=== PATIENT | female | born 1975 | race Caucasian/White ===

== ENCOUNTER 2025-02-25 11:17 | Outpatient (REF) | payer OTHER, SELFPAY ==
--- OUTSIDE RECORDS SUMMARY | 2025-02-25 13:33 | XMS_ITS | Clinical Summary ---
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 Role Phone Unavailable Primary Care Provider Unavailabl e Source Comments PLEASE NOTE, if this patient is a minor, it may be UNLAWFUL to discuss sensitive information that is contained in these records (such as FAMILY PLANNING, MENTAL HEALTH or SUBSTANCE ABUSE) with the minor patient's parent or other person without the patient's specific authorization.[facility] Medications No known medications Active Problems No known active problems Social History Tobacco Use Types Packs/Day Years Used Date Smoking Tobacco: Never Assessed Social Connections Answer Date Recorded Connectedness 0 07/18/2024 Financial Resource Strain Answer Date R ecorded Financial Resource Strain 0 2021 Stress Answer Date Recorded Stress 0 04/01/2022 Physical Activity Answer Date Recorded Physical Activity 0 04/01/2022 Food Insecurity Answer Date Recorded Food 0 08/01/2024 Transportation Needs Answer Date Record ed Transportation 0 04/01/2022 Housing Stability Answer Date Recorded Housing 0 04/01/2022 Safety and Environment Answer Date [place] r[place] Safety 0 04/01/2022 Utilities Answer Date Recorded Utilities 0 04/01/2022 Employment Answer Date Recorded Stress 0 07/18/2024 Comments Unknown Sex and Gender Information Value Date Recorded Sex Assigned at Not on file Legal Sex Female 12:51 PM PDT Gender Identity Not on file Sexual Orientation Not on file Last Filed Vital Signs Vital Sign Reading Time Taken Comments Blood Pressure 143/96 06/02/2022 3:48 PM EDT Pulse 82 06/02/2022 3:48 PM EDT Temperature - - Respiratory Rate - - Oxygen Saturation - - Inhaled Oxygen Concentration - - Weight - - Height - - Body Mass Index - - Plan of Treatment Health Maintenance Due Date Last Done Comments Anxiety Screening 1975 Dental FMX/Pano 1975 Dental Perio Charting 1975 Diabetes Screening 1975 HPV Screening 1975 Hepatitis C Screening 1975 Lipid Screening 1975 Pap + HPV 1975 Tobacco Screening 1975 HIV Screening 1990 Relationship Safety Screening/Counseling 1990 Imm-Hepatitis B (1 of 3 - 19 + 3-dose series) 1994 Cervical Cancer Screening 1996 Pap Smear 1996 Breast Cancer Screening (Mammogram) 2015 Imm-DTaP/Tdap/Td (1 - Tdap) 04/28/2018 04/27/2018 CT Colonography 2020 Colonoscopy 2020 Colorectal Cancer Screening 2020 FIT/gFOBT 2020 Fecal DNA 2020 Flexible Sigmoidoscopy 2020 Hypertension Screening (#1) 06/02/2023 Dental BW 06/04/2023 06/02/2022 Dental Examination 06/04/2023 06/02/2022 Dental Prophy 06/04/2023 06/02/2022 [id number] ( season) 2024 021 Imm-Influenza (#1) 2024 09/02/2014, 0 01/22/2014, 08/16/2011 Alcohol and Drug Screen 11/06/2024 Depression Annual Screen 11/06/2024 Cervical Ablation/Cold-Knife Conization Discontinued Cervical Cryotherapy Discontinued Colposcopy Discontinued Endometrial Biopsy Discontinued Excision/Leep Discontinued HPV Genotyping Discontinued Vaginal Pap Discontinued Vulvoscopy Discontinued Procedures Procedure Name Priority Date/Time Associated Diagnosis Comments BITEWINGS - FOUR RADIOGRAPHIC IMAGES Routine 06/02/2022 3:00 PM EDT Gingivitis, chronic, plaque induced Full PROPHYLAXIS - ADULT Routine 022 3:00 PM EDT Gingivitis, chronic, plaque induced PERIODIC ORAL EVALUATION ESTABLISHED PATIENT Routine 06/02/2022 3:00 PM EDT Gingivitis, chronic, plaque induced from Last 3 Months or Most Recently Relevant to Health Maintenance Insurance [facility]
--- OUTSIDE RECORDS SUMMARY | 2025-02-25 13:33 | XMS_ITS | Encounter Summary ---
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 Role Phone Unavailable Primary Care Provider Unavailabl e Encounter Details Date Type Department Care Team (Late st Contact Info) Description 04/01/2022 Dental Interim Note [facility] [address] [place] [id number] HernandezWhitney jo Y [address] [place], [place] [id number] Social History Tobacco Use Types Packs/Day Years Used Date Smoking Tobacco: Never Assessed Social Connections Answer Date Recorded Social Connections and Isolation 0 04/01/2022 Financial Resource Strain Answer Date R ecorded Financial Resource Strain 0 2021 Stress Answer Date Recorded Stress 0 04/01/2022 Physical Activity Answer Date Recorded Physical Activity 0 04/01/2022 Food Insecurity Answer Date Recorded Food 0 04/01/2022 Transportation Needs Answer Date Record ed Transportation 0 04/01/2022 Housing Stability Answer Date Recorded Housing 0 04/01/2022 Safety and Environment Answer Date [place] r[place] Safety 0 04/01/2022 Utilities Answer Date Recorded Utilities 0 04/01/2022 Employment Answer Date Recorded Employment 0 04/01/2022 Comments Unknown Sex and Gender Information Value Date Recorded Sex Assigned at Not on file Legal Sex Female 12:51 PM PDT Gender Identity Not on file Sexual Orientation Not on file documented as of this encounter Plan of Treatment Not on file documented as of this encounter Visit Diagnoses Not on filedocumented in this encounter
--- OUTSIDE RECORDS SUMMARY | 2025-02-25 13:33 | XMS_ITS | Data Portability ---
Author Organization [place] - [facility], [facility] Address [address] [place] [address] Care Team Providers Care Wellness Assistant Name Role Phone KEILA HUANG Referring Provider [phone] THIEN QUINONES Primary Care Provider Assessment Encounter Date Assessment Date Assessment LastModified by Organization Details LastModified Time 01/28/2025 01/28/2025 Assessment: R shld ROM near full A flexion. Good response to low level stretching and strengthening, and STM to shoulder and c-spine. Less upper trap and cervical spasm. Decreased pain end of RX. Plan: Continue PT @ 2x/wk to decrease pain, increase ROM, optimize mechanics, and improve participation in functional activities. Not available 01/28/2025 12:37:39 01/30/2025 01/30/2025 Assessment: R shld ROM near full A flexion. Good response to low level stretching and strengthening, and STM to shoulder and c-spine. Less upper trap and cervical spasm. Decreased pain end of RX. Plan: Continue PT @ 2x/wk to decrease pain, increase ROM, optimize mechanics, and improve participation in functional activities. Not available 01/30/2025 13:48:39 02/03/2025 02/03/2025 Assessment: R shld ROM near full A flexion. Good response to low level stretching and strengthening, and STM to shoulder and c-spine. Less upper trap and cervical spasm. Decreased pain end of RX. Plan: Continue PT @ 2x/wk to decrease pain, increase ROM, optimize mechanics, and improve participation in functional activities. Not available 02/02/2025 08:45:56 02/05/2025 02/05/2025 Assessment: R shld ROM near full A flexion. Good response to low level stretching and strengthening, and STM to shoulder and c-spine. Less upper trap and cervical spasm. Decreased pain end of RX. Plan: Continue PT @ 2x/wk to decrease pain, increase ROM, optimize mechanics, and improve participation in functional activities. Not available 02/05/2025 07:23:51 Plan of Treatment Reminders Order Date Submit Date Provider Last Modified By Organization Details Last Modified Time Details Appointments POST OP 15 2024 01:00P M Xiomara Gann MD Not available Not available Not available PT INITIAL EVAL 2024 01:30P M Adelso Florek, PT Not available Not available Not available PT FOLLOW-UP 2024 03:30P M Saman Scafuri, RADIO TIME SALESPERSON Not available Not available Not available PT FOLLOW-UP 2024 02:00P M Adelso Florek, PT Not available Not available Not available PT FOLLOW-UP 2024 10:30A M Adelso Florek, PT Not available Not available Not available PT FOLLOW-UP 2024 02:30P M Adelso Florek, PT Not available Not available Not available PT FOLLOW-UP 2024 11:00A M Saman Scafuri, RADIO TIME SALESPERSON Not available Not available Not available PT FOLLOW-UP 2024 03:30P M Adelso Florek, PT Not available Not available Not available PT FOLLOW-UP 2024 02:00P M Saman Scafuri, RADIO TIME SALESPERSON Not available Not available Not available PT FOLLOW-UP 2024 01:30P M Adelso Florek, PT Not available Not available Not available PT FOLLOW-UP 2024 01:30P M Saman Scafuri, RADIO TIME SALESPERSON Not available Not available Not available PT FOLLOW-UP 2024 10:30A M Adelso Florek, PT Not available Not available Not available PT FOLLOW-UP 2024 10:30A M Adelso Florek, PT Not available Not available Not available PT FOLLOW-UP 2024 01:30P M Saman Scafuri, RADIO TIME SALESPERSON Not available Not available Not available PT FOLLOW-UP 2024 01:30P M Saman Scafuri, RADIO TIME SALESPERSON Not available Not available Not available PT FOLLOW-UP 2024 01:30P M Adelso Florek, PT Not available Not available Not available PT FOLLOW-UP 2024 01:30P M Adelso Florek, PT Not available Not available Not available PT FOLLOW-UP 2024 01:00P M Adelso Florek, PT Not available Not available Not available PT FOLLOW-UP 2024 01:00P M Adelso Florek, PT Not available Not available Not available PT FOLLOW-UP 2024 11:00A M Saman Scafuri, RADIO TIME SALESPERSON Not available Not available Not available PT FOLLOW-UP 2024 11:00A M Saman Scafuri, RADIO TIME SALESPERSON Not available Not available Not available PT FOLLOW-UP 2024 10:30A M Adelso Florek, PT Not available Not available Not available PT FOLLOW-UP 2024 10:30A M Adelso Florek, PT Not available Not available Not available PT FOLLOW-UP 2024 11:30A M Saman Scafuri, RADIO TIME SALESPERSON Not available Not available Not available PT FOLLOW-UP 2024 11:30A M Saman Scafuri, RADIO TIME SALESPERSON Not available Not available Not available PT FOLLOW-UP 2024 11:00A M Adelso Florek, PT Not available Not available Not available PT FOLLOW-UP 2024 11:00A M Adelso Florek, PT Not available Not available Not available PT FOLLOW-UP 2024 11:00A M Saman Scafuri, RADIO TIME SALESPERSON Not available Not available Not available PT FOLLOW-UP 2024 11:00A M Saman Scafuri, RADIO TIME SALESPERSON Not available Not available Not available PT FOLLOW-UP 2024 11:00A M Adelso Florek, PT Not available Not available Not available PT FOLLOW-UP 2024 11:00A M Adelso Florek, PT Not available Not available Not available Lab CBC w/ auto diff 2024 025 MADELYN [facility], [address], [place], [address], 02/12/2025 00:05:22 glucose, QN [mass/vol ume], body fluid 2024 025 [email or web address] [facility], [address], [place], [address], 02/07/2025 12:26:35 glucose, QN [mass/vol ume], serum or plasma 2024 025 MADELYN [facility], [address], [place], [address], 02/12/2025 00:05:23 Referral None recorded. Procedures None recorded. Surgeries shoulder arthrosco py with acromiopl asty, distal clavicle resection , & rotator cuff repair (SURG) 2024 025 [email or web address] [facility], [address], [place], [address], 02/07/2025 12:26:35 Imaging None recorded. Medication Orders Colace 100 mg capsule 2024 025 [facility] #[id number], [address] [place] [address], [phone], 02/07/2025 12:50:41 acetamino phen 500 mg tablet 2024 025 [facility] #[id number], [facility] [place], [place], [phone], 02/07/2025 12:50:40 naproxen 500 mg tablet 2024 025 [facility], [address] [place], [place], [phone], 02/07/2025 12:50:43 aspirin 325 mg tablet 2024 025 [id number], [address] [place], [place], [phone], 02/07/2025 12:50:41 hydromorp joel 2 mg tablet 2024 025 [facility][id number], [address] [place], [place], [phone], 02/07/2025 12:50:42 Patient TargetsNo targets recorded. Patient InstructionsNo instructions recorded. Reason for Referral None Reported. Results Created Date Observation Date Name Description Value Unit Range Abnormal Flag Note LastModifiedBy Organization Detail LastModifiedTime 02/08/2002/07/2025 CBC WITH DIFFE RENTI AL/PL ATELE T WBC 16.0 x10e3 /uL 3.4-10 .8 above high normal Not Available [facility] ([facility]) [address] [place], [address], 02/12/2025 00:05:22 02/08/2002/07/2025 CBC WITH DIFFE RENTI AL/PL ATELE T RBC 4.17 x10e6 /uL 3.77-5 .28 normal Not Available [facility] ([facility]) [address] [place], [address], 02/12/2025 00:05:22 02/08/20 25 02/07/2025 CBC WITH DIFFE RENTI AL/PL ATELE T hemoglobin 11.2 g/dL 11.1-1 5.9 normal Not Available [facility] ([facility]) [address] [place], [address], 02/12/2025 00:05:22 02/08/2002/07/2025 CBC WITH DIFFE RENTI AL/PL ATELE T hematocrit 33.9 % 34.0-4 6.6 below low normal Not Available [facility] ([facility]) [address] [place], [address], 02/12/2025 00:05:22 02/08/20 25 02/07/2025 CBC WITH DIFFE RENTI AL/PL ATELE T MCV 81 fL 79-97 normal Not Available [facility] ([facility]) [address] [facility], [place], [address], 02/12/2025 00:05:22 02/08/20 25 02/07/2025 CBC WITH DIFFE RENTI AL/PL ATELE T MCH 26.9 pg 26.6-3 3.0 normal Not Available [facility] ([facility]) [address] [facility], [place], [address], 02/12/2025 00:05:22 02/08/20 25 02/07/2025 CBC WITH DIFFE RENTI AL/PL ATELE T MCHC 33.0 g/dL 31.5-3 5.7 normal Not Available [facility] ([facility]) [address] [facility], [place], [address], 02/12/2025 00:05:22 02/08/20 25 02/07/2025 CBC WITH DIFFE RENTI AL/PL ATELE T RDW 19.3 % 11.7-1 5.4 above high normal Not Available [facility] ([facility]) [address] [place], [address], 02/12/2025 00:05:22 02/08/20 25 02/07/2025 CBC WITH DIFFE RENTI AL/PL ATELE T platelets 427 x10e3 /uL 150-45 0 normal Not Available [facility] ([facility]) [address] [facility], [place], [address], 02/12/2025 00:05:22 02/08/2002/07/2025 CBC WITH DIFFE RENTI AL/PL ATELE T neutrophils 75 % not estab. normal Not Available [facility] ([facility]) [address] [facility], [place], [address], 02/12/2025 00:05:22 02/08/20 25 02/07/2025 CBC WITH DIFFE RENTI AL/PL ATELE T lymphs 17 % not estab. normal Not Available [facility] ([facility]) [address] [place], [address], 02/12/2025 00:05:22 02/08/20 25 02/07/2025 CBC WITH DIFFE RENTI AL/PL ATELE T monocytes 6 % not estab. normal Not Available [facility] ([facility]) [address] [place], [address], 02/12/2025 00:05:22 02/08/20 25 02/07/2025 CBC WITH DIFFE RENTI AL/PL ATELE T eos 2 % not estab. normal Not Available [facility] ([facility]) [address] [place], [address], 02/12/2025 00:05:22 02/08/20 25 02/07/2025 CBC WITH DIFFE RENTI AL/PL ATELE T basos 0 % not estab. normal Not Available [facility] ([facility]) [address] [place], [address], 02/12/2025 00:05:22 02/08/20 25 02/07/2025 CBC WITH DIFFE RENTI AL/PL ATELE T immature cells COMPLAINT SPECIALIST Not Available [facility] ([facility]) [address] [place], [address], 02/12/2025 00:05:22 02/08/20 25 02/07/2025 CBC WITH DIFFE RENTI AL/PL ATELE T neutrophils (absolute) 12.1 x10e3 /uL 1.4-7. 0 above high normal Not Available [facility] ([facility]) [address] [place], [address], 02/12/2025 00:05:22 02/08/20 25 02/07/2025 CBC WITH DIFFE RENTI AL/PL ATELE T lymphs (absolute) 2.6 x10e3 /uL 0.7-3. 1 normal Not Available [facility] ([facility]) [address] [place], [address], 02/12/2025 00:05:22 02/08/20 25 02/07/2025 CBC WITH DIFFE RENTI AL/PL ATELE T monocytes(ab solute) 1.0 x10e3 /uL 0.1-0. 9 above high normal Not Available [facility] ([facility]) [address] [facility], [place], [address], 02/12/2025 00:05:22 02/08/20 25 02/07/2025 CBC WITH DIFFE RENTI AL/PL ATELE T eos (absolute) 0.3 x10e3 /uL 0.0-0. 4 normal Not Available [facility] ([facility]) [address] [facility], [place], [address], 02/12/2025 00:05:22 02/08/20 25 02/07/2025 CBC WITH DIFFE RENTI AL/PL ATELE T baso (absolute) 0.1 x10e3 /uL 0.0-0. 2 normal Not Available [facility] ([facility]) [address] [place], [address], 02/12/2025 00:05:22 02/08/20 25 02/07/2025 CBC WITH DIFFE RENTI AL/PL ATELE T immature granulocytes 0 % not estab. Not Available [facility] ([facility]) [address] [facility], [place], [address], 02/12/2025 00:05:22 02/08/20 25 02/07/2025 CBC WITH DIFFE RENTI AL/PL ATELE T immature grans (abs) 0.0 x10e3 /uL 0.0-0. 1 Not Available [facility] ([facility]) [address] [facility], [place], [address], 02/12/2025 00:05:22 02/08/20 25 02/07/2025 CBC WITH DIFFE RENTI AL/PL ATELE T NRBC COMPLAINT SPECIALIST Not Available [facility] ([facility]) [address] [facility], [place], [address], 02/12/2025 00:05:22 02/08/2002/07/2025 CBC WITH DIFFE SHARA AL/PL ATEVALERY T hematology comments: COMPLAINT SPECIALIST Not Available [facility] ([facility]) [address] [facility], [place], [address], 02/12/2025 00:05:22 02/08/2002/07/2025 GLUCO SE glucose 92 mg/dL 70-99 normal Not Available [facility] ([facility]) [address] [facility], [place], [address], 02/12/2025 00:05:23 01/16/20 25 01/14/2025 MRI, ricardo rodrigo, w/o contr ast [facility] Access ion Number : [id number] Patien t Name: Lucie Solisdevon joyner [facility] Record Number : [id number] Date of : 1974 Date of Exam: 2024 Referr ing Physic skyler: Radha Brambila [address] [facility], [place] [address] Exam: MR Should er (C-) CPT 25760 - Left Room Descri ption: [facility] 3T Clinic al Histor y: Pain in the left should er with limite d range of motion , questi on rotato r cuff tear. The patien t report s mild to modera te daily left should er pain with loss of range of motion and histor y of rotato r cuff repair in June 2020. Techni que: MRI of the left should er was perfor med withou t intrav enous contra st. Compar yoli: Left should er MR akbar solano dated 2017. Findin gs: Rotato r cuff: There is a surgic al anchor in the manish superi or aspect of the lisandra l head. There is interm ediate T2 signal throug hout the supras pinatu s with adjace nt postop erativ e change . There is insert ional tendin opathy of infras pinatu s. The subsca pulari s tendon distal ly is diffus dante interm ediate in T2 signal though appear s to extend the anchor site withou t eviden ce of recurr ent full-t hickne ss tear. Articu lar surfac e partia l tear is seen in the mid to superi or portio n of the subsca pulari s measur ing proxim ately 7 x 13 mm. The teres minor tendon is intact . Mild fatty infilt ration is seen superi padma in the subsca pulari s. Glenoi d labrum and biceps tendon : Diminu tive appear ance of the superi or labrum with free margin trunca tion which may reflec t prior labral debrid ement versus degene rative tear. There is fluid tracki ng betwee n the bicipi nguyen groove and the short head of the biceps tendon . Status post biceps tenode sis with anchor sites seen in the proxim al lisandra l diaphy sis. AC joint: There is eviden ce of interv al distal clavic ular excisi on and subacr omial decomp ressio n. Subcho ndral cysts are seen in distal clavic le. Articu lar cartil age: The articu lar cartil age is of normal thickn ess. No focal defect s are seen. Bone: The bone and bone marrow are normal . Impres jeanna: 1. Status post rotato r cuff repair with postop erativ e change in the subsca pulari s with articu lar surfac e partia l tear in the midpor tion and no defini te recurr ent full-t hickne ss tear. 2. Supras pinatu s tendin opathy and tendin opathy of the infras pinatu s attach ment. 3. Status post biceps tenode sis, with nonspe cific fluid tracki ng betwee n the short head of biceps tendon in the bicipi nguyen groove . 4. Postop erativ e change at the acromi oclavi cular joint. Electr onical ly Signed By: Saray [email or web address] [facility] [address], [place], [address], 01/15/2025 15:43:02 Result Notes None recorded. Problems Name Problem SNOMED Code Status Onset Date Resolution Date Notes Provider Name and Address Organization Details Recorded Time Pain of left shoulder joint 699534060112 21150 Active 2024 Radha Cartagena PA-C [address], [place], [address] , [facility] 5 08:37:56 Neck pain 61215518 Active 2024 Radha Cartagena PA-C [address], [place], [address] , [facility] 5 20:28:34 Full thickness rotator cuff tear 214977384 Active 2019 Problem Code: M75.122; Problem Code Type: ICD-10; Status: 'A'; Not Available [facility] 4 11:58:04 Notes:Some problems listed i n Document: #[id number] could not be added to this patient's chart. Please review this document and add these problems to the patient's chart manually as needed. Problem Notes None recorded. Procedures Surgical History Date Name Laterality Status Provider Name and Address Organization Details Recorded Time 4 05826 Therapeutic Exercise (1:1) completed Adelso Miller PT [address], [place], [address], [facility] 04/16/2024 19:43:42 4 79776: Manual therapy completed Adelso Miller PT [address], [place], [address], [facility] 04/16/2024 19:43:42 4 69401 Therapeutic Exercise (1:1) completed Adelso Miller PT [address], [place], [address], [facility] 04/14/2024 10:31:41 4 88127: Manual therapy completed Adelso Miller PT [address], [place], [address], [facility] 04/14/2024 10:31:41 4 15062 Therapeutic Exercise (1:1) completed Saman Scafuri, RADIO TIME SALESPERSON [address], [place], [address], [facility] 04/10/2024 14:46:14 4 94502: Manual therapy completed Saman Scafuri, RADIO TIME SALESPERSON [address], [place], [address], [facility] 04/10/2024 14:46:14 75776 Therapeutic Exercise (1:1) completed Saman Scafuri, RADIO TIME SALESPERSON [address], [place], [address], [facility] 04/03/2024 14:33:14 74246: Manual therapy completed Saman Scafuri, RADIO TIME SALESPERSON [address], [place], [address], [facility] 04/03/2024 14:33:14 86451 Therapeutic Exercise (1:1) completed Saman Scafuri, RADIO TIME SALESPERSON [address], [place], [address], [facility] 03/27/2024 15:02:46 47203: Manual therapy completed Saman Scafuri, RADIO TIME SALESPERSON [address], [place], [address], [facility] 03/27/2024 15:02:46 4 70239 Therapeutic Exercise (1:1) completed Saman Scafuri, RADIO TIME SALESPERSON [address], [place], [address], [facility] 03/25/2024 14:17:29 46693: Manual therapy completed Saman Scafuri, RADIO TIME SALESPERSON [address], [place], [address], [facility] 03/25/2024 14:17:29 05/16/202 4 44691 Therapeutic Exercise (1:1) completed Saman Scafuri, RADIO TIME SALESPERSON [address], [place], [address], [facility] 03/21/2024 11:45:26 4 83838: Manual therapy completed Saman Alisiafuri, RADIO TIME SALESPERSON [address], [place], [address], [facility] 03/21/2024 11:45:26 4 05752 Therapeutic Exercise (1:1) completed Saman Alisiafuri, RADIO TIME SALESPERSON [address], [place], [address], [facility] 03/19/2024 15:56:30 4 69197: Manual therapy completed Saman Broussardri, RADIO TIME SALESPERSON [address], [place], [address], [facility] 03/19/2024 15:56:30 4 88110 Therapeutic Exercise (1:1) completed Adelso Miller, PT [address], [place], [address], [facility] 03/13/2024 15:06:04 4 51841: Manual therapy completed Adelso Miller, PT [address], [place], [address], [facility] 03/13/2024 15:06:04 4 29326 Therapeutic Exercise (1:1) cancelled Adelsobharath Miller, PT [address], [place], [address], [facility] 03/12/2024 07:12:38 4 09412: Manual therapy cancelled Adelso Miller, PT [address], [place], [address], [facility] 03/12/2024 07:12:38 4 42294 Therapeutic Exercise (1:1) completed Adelso Miller, PT [address], [place], [address], [facility] 03/07/2024 07:04:46 4 40405: Manual therapy completed Adelso Miller, PT [address], [place], [address], [facility] 03/07/2024 07:04:46 4 51087 Therapeutic Exercise (1:1) completed Adelso Miller, PT [address], [place], [address], [facility] 03/01/2024 17:30:53 4 89206: Manual therapy completed Adelso Miller, PT [address], [place], [address], [facility] 03/01/2024 17:31:02 4 67851 Therapeutic Exercise (1:1) completed Adelso Miller, PT [address], [place], [address], [facility] 02/29/2024 06:30:04 4 97587: Low complexity PT Eval completed Adelso Miller, PT [address], [place], [address], [facility] 02/29/2024 06:29:53 Imaging Results Imaging Date Name Status LastModified by Organiz ation Details LastModified Time 01/14/2025 MRI, shoulder, w/o contrast completed [email or web address] [facility] ([facility] [address], [place], [address], 01/15/2025 15:43:02 Procedure Notes None recorded. Medical Equipment None Reported. Allergies Allergen ID Allergen Name Allergen Category Reaction Reaction Severity Criticality Documentation Date Start Date Code Code System Note Provider Name and Address Organization Details Recorded Time 130268 Substance with sulfonami de structure and antibacte rial mechanism of action (substanc e) medicatio n Not available Not available Not available 05/13/2024 62869 8006 SNOMED MILI yip [facility] 4 10:58:49 953002 lisinopri l medicatio n Not available Not available Not available 05/13/2024 06420 RxNorm MILI yip [facility] 4 10:58:56 228685 oxycodone medicatio n Not available Not available Not available 08/09/2024 7804 RxNorm MILI yip [facility] 4 14:13:27 511021 Celebrex medicatio n vomiting Not available Not available 12/06/2024 58734 7 RxNorm MILI yip [facility] 5 09:16:06 09797 Bactrim medicatio n Not available Not available Not available 01/08/20242005 03771 9 RxNorm Aller gyRea ction : 'Skin React ion'; Not Available [facility] 4 13:27:28 10511 naproxen medicatio n swelling Not available Not available 01/08/20242021 7258 RxNorm Not Available [facility] 4 13:27:28 90844 amoxicill in trihydrat e medicatio n Not available Not available Not available 01/08/20242021 46818 8 RxNorm Not Available [facility] 4 13:27:28 Medications Name Sig Start Date Stop Date Status Note LastModified by Organization Details LastModified Time celecoxib 200 mg capsule Take 1 capsule every day by oral route in the morning for 30 days. 12/06 completed Not Available Not Available Not Available cyclobenzap rine 10 mg tablet TAKE 1 TABLET BY MOUTH AT BEDTIME NEEDED SPASMS FOR 14 DAYS 12/06 completed Not Available Not Available Not Available cetirizine 10 mg tablet TAKE 1 TABLET BY MOUTH EVERY DAY active Not Available Not Available No t Available aspirin 325 mg tablet Take 1 tablet every day by oral route for 14 days. 2024 active Not Available Not Available Not Avai lable meloxicam 15 mg tablet TAKE 1 TABLET BY MOUTH ONCE DAILY WITH FOOD NEEDED active Not Available Not Available No t Available acyclovir 400 mg tablet TAKE 1 TABLET BY MOUTH TWICE A DAY active Not Available Not Available No t Available acetaminoph en 500 mg tablet TAKE 2 TABLETS BY MOUTH THREE TIMES DAILY active Not Available Not Available No t Available meloxicam 7.5 mg tablet TAKE 1 TABLET BY MOUTH ONCE DAILY WITH FOOD NEEDED. REPLACES CELEBREX active Not Available Not Available No t Available carbamazepi ne 200 mg tablet TAKE 1 TABLET BY MOUTH TWICE A DAY FOR 30 DAYS active Not Available Not Available No t Available hydromorpho ne 2 mg tablet TAKE 1 TABLET BY MOUTH EVERY 4 HOURS active Not Available Not Available No t Available aspirin 325 mg tablet,angel yed release TAKE 1 TABLET BY MOUTH EVERY DAY FOR 14 DAYS active Not Available Not Available No t Available amlodipine 10 mg tablet TAKE 1 TABLET BY MOUTH EVERY DAY active Not Available Not Available No t Available docusate sodium 100 mg capsule TAKE 1 CAPSULE BY MOUTH DAILY active Not Available Not Available No t Available sertraline 25 mg tablet TAKE 1 TABLET BY MOUTH AT BEDTIME 12/06 completed Not Available Not Available Not Available buspirone 7.5 mg tablet TAKE 1 TABLET BY MOUTH TWICE A DAY 08/09 completed Not Available Not Available Not Available hydromorpho ne 4 mg tablet TAKE A 1/2 TABLET BY MOUTH EVERY 4-6 HOURS FOR PAIN, DO NOT DRIVE WHILE TAKING 04/30 completed Not Available Not Available Not Available losartan 100 mg tablet TAKE 1 TABLET BY MOUTH EVERY DAY active Not Available Not Available No t Available fluticasone propionate 50 mcg/actuati on nasal spray,suspe nsion SPRAY 1 SPRAY INTO BOTH NARES TWO TIMES A DAY FOR 90 DAYS. active Not Available Not Available No t Available naproxen 500 mg tablet Take 1 tablet twice a day by oral route for 5 days. 2024 active Not Available Not Available Not Avai lable escitalopra m 20 mg tablet TAKE 1 AND 1/2 TABLETS DAILY BY MOUTH 12/06 completed Not Available Not Available Not Available aripiprazol e 15 mg tablet TAKE 1/2 TABLET BY MOUTH EVERY DAY active Not Available Not Available No t Available atomoxetine 25 mg capsule TAKE 1 CAPSULE BY MOUTH EVERY DAY IN THE MORNING 12/06 completed Not Available Not Available Not Available atomoxetine 40 mg capsule 1 CAPSULE EVERY DAY STARTDATE : 01-15-202 5 active Not Available Not Available No t Available aripiprazol e 5 mg tablet TAKE 1/2 TABLET BY MOUTH EVERY DAY .STARTDAT E : 5 active Not Available Not Available No t Available bupropion HCl XL 300 mg 24 hr tablet, extended release TAKE 1 TABLET BY MOUTH ONCE A DAY WITH A 150MG TAB FOR A TOTAL OF 450MG active Not Available Not Available No t Available bupropion HCl XL 150 mg 24 hr tablet, extended release TAKE 1 TABLET BY MOUTH EVERY 24 HOURS,INS TR:TAKE WITH 300MG TO MAKE 450MG TOTAL active Not Available Not Available No t Available Paxil Paxil 30MG Tablet once a day 04/30 completed Statu s: 'Curr ent'; Not Available Not Available Not Available ferrous gluconate 324 mg (38 mg iron) tablet PLEASE SEE ATTACHED FOR DETAILED DIRECTION S active Not Available Not Available No t Available oxycodone HCl-oxycodo ne-ASA as directed 1 TABLET Q 4 HOURS PRN PAIN DO NOT DRIVE WHILE TAKING THIS MEDICATIO N 04/30 completed Statu s: 'Curr ent'; Not Available Not Available Not Available M-Hans Plus 27 mg iron-1 mg tablet TAKE 1 TABLET BY MOUTH EVERY DAY active Not Available Not Available No t Available Vitals Date Recorded Body height Body mass index (BMI) Body weight Provider Name and Address Organization Details Last Updated DateTime 02/07/2025 160.02 cm 37.6 kg/m2 62003.58 g MILI HUANG [place] [facility] 02/07/2025 09:55:14 Date Recorded Body temperature Oxygen saturation Oxygen saturation in Arterial blood by Pulse oximetry Respiratory rate Heart rate Systolic blood pressure Diastolic blood pressure Provider Name and Address Organization Details Last Updated DateTime 5 97.3 [degF] 98 % 98 % 16 /min 103 /min 138 mm[Hg] 84 mm[Hg] Xiomara Gann MD [address], [place], [address], [place] - [facility] 5 10:41:36 Social History Question Answer Notes LastModified by Organization D etails LastModified Time Which Of Your Hands Is Dominant? Right [email or web address] Information not available 01/08/2025 Sex: Unknown Functional Status None recorded. Mental Status None recorded. Family History Nothing Reported. Medical History Condition Response Allergies/Hayfever N Coronary Artery Disease N Breathing or lung disorders N Anxiety/Depression N Emphysema N Nerve Disorders N Thyroid Problems N COPD N Pacemaker N Kidney/Bladder Problems N Anemia Y Vascular Disease N Heart Trouble N Gastrointestinal Disease N Heart Attack (OK) N Cholesterol N Diabetes N Autoimmune disease N Bleeding Disorder N Orthotics N Arthritis N Seizures/Epilepsy N Blood Clot N AIDS/HIV N Congestive Heart Failure (CHF) N Acid Reflux (GERD) N Cancer N Stroke N Asthma N Circulation Problems N Peripheral Vascular Disease N Sleep Apnea N Hepatitis N Heart Disease N Rheumatoid Arthritis N Arrhythmia N Pulmonary Embolism N Headaches Y Fibromyalgia N Hypertension Y Osteoporosis N Gynecological HistoryNo gynecological history recorded. Obstetrics History GPAL:G 0 P 0 0 0 0 Past Encounters Encounter ID Performer Location Encounter Start Date Encounter Closed Date Diagnosis/Indication Diagnosis SNOMED-CT Code Diagnosis ICD10 Code Diagnosis Note [id number] MD Jose R Drake [address] [place] [address] 02/05/2024 11:10:49 02/19/2024 10:11:21 History of reverse prosthetic total arthroplasty of right shoulder 9081352171 [id number] Z96.407 [id number] [facility] [address] [place] [address] 01/30/2024 09:18:57 02/16/2024 15:45:27 Synovitis of left ankle joint 5285532404 170477 M65.9 Instabilit y of joint of left ankle 2484600091 360468 M25.040 [id number] MD Jose R Koch [address] [place] [address] 02/27/2024 13:23:43 03/18/2024 07:15:27 Postoperative care [id number] Z48.89 [id number] Adelso Miller, PT [facility] [address] [place] [address] 02/28/2024 14:20:25 02/28/2024 16:26:31 Sprain of lateral ligament of ankle joint 671713472 S93.492D [id number] Adelsobharath Miller, PT [facility] [address] [place] [address] 03/04/2024 11:25:08 03/04/2024 12:18:48 Sprain of lateral ligament of ankle joint [id number] S93.492D [id number] Adelso Miller, PT [facility] [address] [place] [address] 03/07/2024 13:06:10 03/07/2024 15:05:31 Sprain of lateral ligament of ankle joint 227197784 S93.492D [id number] Adelso Miller, PT [facility] [address] [place] [address] 03/14/2024 13:23:06 03/14/2024 14:32:48 Sprain of lateral ligament of ankle joint 241775879 S93.492D [id number] Adelso Miller, PT [facility] [address] [place] [address] 03/19/2024 13:06:32 03/19/2024 14:01:40 Sprain of lateral ligament of ankle joint 428343250 S93.492D [id number] Adelso Miller, PT [facility] [address] [place] [address] 03/21/2024 09:36:14 03/21/2024 15:54:12 Sprain of lateral ligament of ankle joint 983331811 S93.492D [id number] Adelso Miller, PT [facility] [address] [place] [address] 03/25/2024 13:26:59 03/25/2024 14:42:23 Sprain of lateral ligament of ankle joint 887860322 S93.492D [id number] Adelso Miller, PT [facility] [address] [place] [address] 03/27/2024 13:13:31 03/27/2024 14:07:43 Sprain of lateral ligament of ankle joint 945420869 S93.492D [id number] Adelso Palomaek, PT [facility] [address] [place] [address] 04/03/2024 13:24:27 04/03/2024 14:40:41 Sprain of lateral ligament of ankle joint 102211541 S93.492D [id number] Adelso Miller, PT [facility] [address] [place] [address] 04/10/2024 13:35:15 04/10/2024 14:12:44 Sprain of lateral ligament of ankle joint 131600761 S93.492D [id number] Adelso Miller, PT [facility] [address] [place] [address] 04/15/2024 13:26:49 04/15/2024 14:17:30 Sprain of lateral ligament of ankle joint 673848424 S93.492D [id number] Adelso Miller, PT [facility] [address] [place] [address] 04/17/2024 13:29:46 04/17/2024 14:42:06 Sprain of lateral ligament of ankle joint 219027930 S93.492D [id number] Tami Nelson DPT [facility] [address] [place] [address] 04/29/2024 13:29:54 04/29/2024 14:01:14 Sprain of lateral ligament of ankle joint [id number] S93.492D [id number] Yolie Richter PA-C [facility] [address] [place] [address] 04/30/2024 10:27:49 05/17/2024 09:49:18 Instability of joint of left ankle 9792757291 430155 M25.398 [id number] Tami Nelson DPT [facility] [address] [place] [address] 05/01/2024 13:27:00 05/01/2024 14:01:29 Sprain of lateral ligament of ankle joint 742384092 S93.492D [id number] Xiomara Gann MD [facility] [address] [place] [address] 05/13/2024 10:38:52 05/29/2024 07:37:53 History of reverse prosthetic total arthroplasty of right shoulder 2452198551 2834268 Z96.867 [id number] STEPHANIE [facility] [address] [place] [address] 06/07/2024 10:00:51 07/05/2024 17:46:46 History of reverse prosthetic total arthroplasty of right shoulder 0276464956 6293934 Z96.876 [id number] MD [facility] R [facility] 2nd floor [address] [place] [address] 06/24/2024 14:51:16 07/17/2024 10:48:08 Impingement syndrome of right shoulder region 5672254450 06362 M75.41 [id number] MD [facility] [address] [place] [address] 08/09/2024 09:33:39 09/04/2024 08:54:55 Pain of right shoulder joint 5781128501 9462012 M25.968 [id number] MD Jose R Drake 2nd floor [address] [place] [address] 08/30/2024 09:22:22 09/24/2024 08:50:07 Follow-up orthopedic assessment [id number] Z47.89 [id number] MD Toro [facility] [address] [place] [address] 10/11/2024 10:32:28 11/11/2024 13:46:35 Cervical radiculopathy 60442726 M54.12 Follow-up orthopedic assessment [id number] Z47.89 [id number] MD [facility] [address] [address] 12/06/2024 08:30:10 12/18/2024 11:55:32 Pain of left shoulder joint 6951871447 8907355 M25.512 Neck pain 82254077 M54.2 [id number] Adelso Miller, PT [facility] [address] [place] [address] 11/29/2024 10:03:56 11/29/2024 10:24:12 Aftercare 843544927 Z47.1 Z96.983 [id number] Adelso Miller, PT [facility] [address] [place] [address] 12/03/2024 14:57:59 12/03/2024 16:07:24 Aftercare [id number] 47.1 Z96.919 [id number] Tami Nelson, DPT [facility] [address] [place] [address] 12/10/2024 17:37:30 12/10/2024 18:07:58 Aftercare [id number] 47.1 Z96.762 [id number] Adelso Miller, PT [facility] [address] [place] [address] 12/16/2024 13:45:19 12/16/2024 17:01:13 Aftercare [id number] 47.1 Z96.560 [id number] Adelso Miller, PT [facility] [address] [place] [address] 12/20/2024 13:20:08 12/20/2024 14:16:51 Aftercare [id number] 47.1 Z96.858 [id number] Adelso Miller, PT [facility] [address] [place] [address] 01/01/2025 17:09:05 01/01/2025 18:11:02 Aftercare [id number] 47.1 Z96.588 [id number] Adelso Miller, PT [facility] [address] [place] [address] 01/07/2025 14:50:28 01/07/2025 15:32:35 Aftercare [id number] Z47.1 Z96.709 [id number] Radha Cartagena PA-C [facility] [address] [place] [address] 01/08/2025 09:24:48 01/23/2025 15:14:42 Pain of left shoulder joint 8328395702 8100399 M25.512 Neck pain 77798106 M54.2 [id number] Adelsobharath Miller, PT [facility] [address] [place] [address] 01/09/2025 14:08:24 01/09/2025 15:39:04 Aftercare [id number] Z47.1 Z96.047 [id number] Adelso Miller, PT [facility] [address] [place] [address] 01/13/2025 13:51:39 01/13/2025 14:36:41 Aftercare [id number] Z47.1 Z96.964 [id number] Adelso Miller, PT [facility] [address] [place] [address] 01/15/2025 13:51:20 01/15/2025 14:31:16 Aftercare [id number] Z47.1 Z96.098 [id number] MD [facility] [address] [address] [place] [address] 02/07/2025 09:15:02 02/24/2025 08:25:59 Full thickness rotator cuff tear 140378440 M75.122 Nontraumat ic complete rupture of rotator cuff of left shoulder 0049981491 202749 M75.023 [id number] Adelso Miller, PT [facility] [address] [place] [address] 01/22/2025 09:00:15 01/22/2025 09:38:40 Aftercare [id number] Z47.1 Z96.458 [id number] Adelso Miller, PT [facility] [address] [place] [address] 01/24/2025 06:56:56 01/24/2025 07:55:39 Aftercare [id number] Z47.1 Z96.598 [id number] Adelso Angela, PT [facility] [address] [place] [address] 01/28/2025 11:48:30 01/28/2025 13:01:26 Aftercare [id number] Z47.1 Z96.884 [id number] Adelso Miller, PT [facility] [address] [place] [address] 01/30/2025 11:51:14 01/30/2025 12:40:55 Aftercare [id number] Z47.1 Z96.275 [id number] Adelso Miller, PT [facility] [address] [place] [address] 02/03/2025 13:19:01 02/03/2025 14:11:28 Aftercare [id number] Z47.1 Z96.963 [id number] Adelso Miller, PT [facility] [address] [place] [address] 02/05/2025 13:24:15 02/05/2025 14:33:17 Aftercare [id number] Z47.1 Z96.611 Health Concerns Section Related Observation LastModified by Organization Detai ls LastModified Time None Recorded Concern Status LastModified by Organization Details LastModified Time None Recorded Advance Directives Directive None Recorded Payers Encounter Date Sequence Insurance Name Policy Number Policy Luevano Covered Member ID Luevano Member ID Guarantor Name 01/28/2025 1 [facility] (MEDICAID HMO) [id number] Flaquita A A Will [id number] Flaquita A Will 01/30/2025 1 [facility] (MEDICAID O) [id number] Flaquita A A Will [id number] Flaquita A Will 02/03/2025 1 [facility] (MEDICA[facility] H[facility]) [id number] Flaquita A A Will [id number] Flaquita A Will 02/05/2025 1 [facility] (MEDICAID O) [id number] Flaquita A A Will [id number] Flaquita A Will 02/07/2025 1 [facility] (MEDICAID HMO) [id number] Flaquita Solis [id number] Flaquita Solis Notes Date Note Type Note Provider Name and Address Organization Details Recorded Time 01/28/2025 text/html Pt reports Gio tillman feeling sore from sleeping on it. Increased pain to 4/10 today. Pt going to [facility]-sp[facility] tomorrow. Saman Doherty, [employer] SALESPERSON [address], [place], [address], [facility] 01/28/2025 12:39:40 01/30/2025 text/html Pt reports getti ng C-spine injection, no change in symptoms yet. L Shoulder reamins painful, R shoulder is 2-3/10 pain today. Saman Doherty, [employer] SALESPERSON [address], [place], [address], [facility] 01/30/2025 13:51:38 02/03/2025 text/html Pt reports getti ng C-spine injection, no change in symptoms yet. L Shoulder remains painful, R shoulder is 2/10 pain today. Adelso Miller, PT [address], [place], [address], [facility] 02/04/2025 07:17:42 02/05/2025 text/html Pt reports getti ng C-spine injection, no change in symptoms yet. L Shoulder remains painful, R shoulder is 2/10 pain today. Adelso Miller, PT [address], [place], [address], [facility] 02/05/2025 16:20:11 02/07/2025 text/html Issues:- S/p Rig ht shoulder open lysis of adhesions, tenotomy of conjoined tendon, 08/20/2024 (s/p right reverse total shoulder arthroplasty, 05/2023)- Left shoulder pain s/p remote Left rotator cuff repair- Possible cervical radiculopathy Interval History: Juarez returns in follow-up now 3 months out from surgery as above. Discontinued sling postop day #1, has been doing some gentle stretching exercises with recent initiation of formal physical therapy. Notes that the shoulder remains quite sore, even at rest, with occasional shooting pains. Most of her pain remains over the anterior aspect of the shoulder, but now describes some radiation to the chest. Can still radiate to the lateral brachium as well. No radiation below the elbow. Does have some numbness and tingling, worse on the left than on the right, and a carpal tunnel distribution, with a history of carpal tunnel in the past. She continues in physical therapy for the shoulder and neck, and PT notes suggest improved pain overall. I did also refer her to [facility]. She was seen by Dr. Hernandez there, with an MRI ordered. She believes that this showed some arthritis. She did have a cervical epidural injection which did seem to help, suggesting that the neck may be playing a role in her right shoulder symptoms. I did start her on Celebrex at the last appointment. Unfortunately she had significant nausea and vomiting with this, and was switched to meloxicam instead, which has been helping. Unfortunately, she is now complaining of increasing pain in her left shoulder, which she has had a previous rotator cuff repair surgery, beginning in October. No improvement with cortisone injection 12/06/2024. If anything, worse pain since an additional injury to 725 when she was stretching and felt a pop in the anterior shoulder, associated with increased pain. No injury that she can recall. Pain is felt over the lateral brachium as well as the posterolateral elbow, exacerbated by lifting overhead. Denies crepitus. She has been sent for an MRI of the shoulder and returns today to review results of that study. Past family, medical, social history and review of systems have been reviewed and updated on the medical history sheet saved to the patient's chart. A 12-point review of systems is negative x12 except as noted above and/or on the medical history sheet. Examination: Pleasant 49-year-old woman in no acute distress. On exam of the Right upper extremity, healed deltopectoral incision. No significant swelling or bruising. No evidence for Patel deformity. Active forward elevation 175, external rotation 70, internal rotation L4. Pain throughout. Sensation intact in axillary and LABC distributions. Fires EPL, FPL and intrinsics. Hand is warm and well perfused. On exam of the left upper extremity, skin over the shoulder is intact with healed arthroscopic portal incisions. No point tenderness to palpation on exam today. Active forward elevation 90, passive 170, external rotation 80, internal rotation L4. Positive drop arm sign. 5/5 with internal and external rotation. Pain with both. Pain, no weakness with bear hug maneuver. Negative Yergason's. Motor and sensation grossly tact distally. Hand is warm and well-perfused. Cervical spine range of motion is well-preserved, however extension lateral rotation and particularly Spurling's to the right to reproduce her pain over the anterior chest and shoulder. Imaging: Left shoulder MRI performed at [facility] 01/14/2025 independently reviewed by me on Ortho PACS during the visit today. It looks like there may be a new tear of the anterior supraspinatus. There is some tissue bridging here to the tuberosity, but I suspect that this may be some scar tissue. Better quality tissue appears to be retracted to the lateral third of the humeral head. The subscapularis itself is quite thin. There is tissue bridging toward the lesser tuberosity, but I suspect recurrent tear here as well. Long head biceps tendon is absent from the groove. Modest fatty infiltration of the upper portion of the subscapularis. Supraspinatus and infraspinatus muscle bellies well-preserved. 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 Still with anterior shoulder pain, unchanged. Source does not seem to be from the shoulder at this point. Cervical spine pathology may be contributing. Also with new left shoulder symptoms, where she has had previous rotator cuff repair, since October. Exam and imaging here are consistent with new supraspinatus tear and possibly recurrent subscapularis tear. Plan: Findings and options for management reviewed with the patient. Ultimately, we did decide to go forward with rotator cuff repair for the left shoulder given the significant symptoms she is having here. Plan for surgery will be left rotator cuff repair, subacromial decompression, distal clavicle excision, lysis of adhesions. Surgery date will be within 3 months of the cortisone injection, though well with risk of infection with this type of procedure. Given given the amount of pain that she is having, she is willing to take this risk to get out of this pain as soon as possible. SURGICAL DECISION MAKING Issue: Left rotator cuff repair HPI: This is a 49-year-old [id number] woman with history of previous left subscapularis repair, open biceps tenodesis, SAD DCE 07/01/2020 with return of left shoulder symptoms since October. No improvement with cortisone injection 12/06/2024. If anything, worse pain since an additional injury 12/13/24 when she was stretching and felt a pop in the anterior shoulder, associated with increased pain. No injury that she can recall. Pain is felt over the lateral brachium as well as the posterolateral elbow, exacerbated by lifting overhead. Denies crepitus. She has been sent for an MRI of the shoulder and returns today to review results of that study.. Given ongoing symptoms refractory to conservative management, we are planning to move forward with surgical intervention. 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 Single, with 3 adult daughters who can help her postoperatively. Social alcohol use. Denies tobacco use. Family Hx: noncontributory ROS: Negative x12 except as noted above in the HPI Past family, medical, social history and review of systems have been reviewed and updated on the medical history sheet saved to the patient's chart. A 12-point review of systems is negative x12 except as noted above and/or on the medical history sheet. Examination: Pleasant 49-year-old woman in no acute distress. 5 feet 3 inches, 212 pounds. Neuro: Awake, alert and oriented Neck: Supple HEENT: Oropharynx clear Chest: No increased work of breathing, no audible wheeze Heart: Regular rate by palpation peripherally Abdomen: Soft nontender nondistended MSK: On exam of the left upper extremity, skin over the shoulder is intact with healed arthroscopic portal incisions. No point tenderness to palpation on exam today. Active forward elevation 90, passive 170, external rotation 80, internal rotation L4. Positive drop arm sign. 5/5 with internal and external rotation. Pain with both. Pain, no weakness with bear hug maneuver. Negative Yergason's. Motor and sensation grossly tact distally. Hand is warm and well-perfused. Imaging: Left shoulder MRI performed at [facility] 01/14/2025 independently reviewed by me on Ortho PACS during the visit today. It looks like there may be a new tear of the anterior supraspinatus. There is some tissue bridging here to the tuberosity, but I suspect that this may be some scar tissue. Better quality tissue appears to be retracted to the lateral third of the humeral head. The subscapularis itself is quite thin. There is tissue bridging toward the lesser tuberosity, but I suspect recurrent tear here as well. Long head biceps tendon is absent from the groove. Modest fatty infiltration of the upper portion of the subscapularis. Supraspinatus and infraspinatus muscle bellies well-preserved. 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 Exam and imaging here are consistent with new supraspinatus tear and possibly recurrent subscapularis tear.. Given ongoing symptoms refractory to conservative management, we are planning to move forward with surgical intervention. Plan: Plan for surgery will be left rotator cuff repair, subacromial decompression, distal clavicle excision, lysis of adhesions. The technical details of surgery were reviewed during the visit. The typical downtime and recovery from such a surgery was discussed, and postoperative restrictions and instructions reviewed with appropriate handouts given. We reviewed the risks of surgery, including but not limited to: Bleeding, infection, injury to nerves/blood vessels/muscles/tendo ns, pain, stiffness, failure to heal, hardware complications, need for further surgery. The patient expressed understanding of this discussion. Questions were elicited and answered to the patient's satisfaction. Postoperative pain medication prescriptions (tylenol, naproxen and Dilaudid) e-prescribed to [facility] in [place] from the office today. Postop DVT prophylaxis will be: Aspirin 325 daily x2 weeks. The postoperative medication regimen was discussed in detail, including the risks and benefits of each medication in turn. We will have the patient go down stairs at the end of the appointment to be fit for a postoperative sling. The patient would benefit from a preoperative nerve block, to be performed by anesthesia, for postoperative pain control. DME: The patient has weakness and instability of their extremity which requires stabilization for this semi-rigid/rigid orthosis to improve their function. Verbal and written instructions for the use and application of this item were given. Patient was instructed that should the brace result in increased pain, decreased sensation, increased swelling or an overall worsening of their medical condition, to please contact our office immediately. [employer] speech recognition butt sawyer software was used to create portions of this document. An attempt at proofreading has been made to minimize errors. Please call for corrections. [employer] speech recognition butt sawyer software was used to create portions of this document. An attempt at proofreading has been made to minimize errors. Please call for corrections. Xiomara Gann MD [address] [place], [place] [address] [address], [place], [address], [facility] - [facility] 02/07/2025 12:50:53 OBGyn Episode No OBEpisode recorded.
--- OUTSIDE RECORDS SUMMARY | 2025-02-25 13:33 | XMS_ITS | Patient Health Record ---
Author Organization [facility] Address [address] [facility] [place] [address] Care Team Providers Care Polo Coach Name Role Phone Nallely Anna ROB Primary Care Provider Unavail able Dwaine Quinn Unavailable [phone] Allergies Allergen (clinical drug ingredient) Drug/Non Drug Allergy documented on EMR Reaction Allergy Type Onset Date Status amoxicillin Amoxicillin vomiting Drug Allergy Act prince sulfamethoxazole / trimethoprim Bactrim rash Drug Allergy Active Reason For Referral No Information Medications Medication SIG (Take, Route, Frequency, Duration) Notes Start Date End Date Status Feldene 20 MG 1 capsule with food Orally Once a day for 30 day(s) 06/27/2018 Active Custom Orthotics as directed 06/27/2018 Active Night Splint AFO - L1930 as directed 06/27/2018 Active Physical Therapy . . . 2-3x/week for 3- 4 weeks 06/27/2018 Active Wellbutrin XL 150 MG 1 tablet in the mor pedro Orally Once a day Active ZyrTEC Allergy 10 MG 1 tablet Orally Once a day Active amLODIPine Besylate 5 MG 1 tablet Orally Once a day Active Losartan Potassium-HCTZ 100-25 MG 1 tablet Orally Once a day A ctive Social History Tobacco Use: Social History Observation Description Date Details (start date - stop date) Never Smoker NA - NA Tobacco Use/Smoking Question Answer Notes Are you a: nonsmoker Additional Findings: Tobacco Non-User Current no n-smoker Alcohol Screen Question Answer Notes Did you have a drink contain ing alcohol in the past year? Yes How often did you have a dri nk containing alcohol in the past year? 2 to 4 times a month (2 points) Points 2 Interpretation Negative Tobacco use other than smoking: Question Answer Notes Are you an other tobacco user? No Plan Of Treatment Pending Test Test Name Order Date X ray : Foot, left 2V 06/27/2018 Insurance Providers Payer Name Payer Address Payer Phone Subscriber Number Group Number Insured Name Patient Relationship to Insured Coverage Start Date Coverage End Date [facility] [id number] [place] [address] [id number] Flaquita Solis Self - patient is the insured Medical (General) History Medical History History ICD Code Anxiety Back,Hip,and Knee pain Depression Headaches/Migraines High blood pressure chronic sinusitis Chicken pox Transfusions Surgical History Surgery Date(Month/Year) tubal ligation 12/1998 gastric bypass 02/2008 hysterectomy 06/2009 ligament repair 11/2007
--- OUTSIDE RECORDS SUMMARY | 2025-02-25 13:33 | XMS_ITS | Data Portability ---
Author Organization [place] [facility], Allergy Address [address] [facility] [address] [place] [address] Care Team Providers Care Cell Biologist Name Role Phone THIEN QUINONES Primary Care Provider Assessment Encounter Date Assessment Date Assessment LastModified by Organization Details LastModified Time 10/25/2024 10/25/2024 Patient appears to have a progressive hearing loss in the left ear of unclear etiology. Differential diagnosis includes genetic hearing loss, virus, sudden hearing loss or acoustic neuroma. Suggest proceeding with MRI scan with gadolinium to rule out a tumor. She then may be a candidate for cochlear implantation. In the meantime she will work with [facility] to get a CROS hearing aid Appears progressive from prior audio in April [email or web address] Not available 10/25/2024 10:16:21 Plan of Treatment Reminders Order Date Submit Date Provider Last Modified By Organization Details Last Modified Time Details Appointments Test Results 10 2024 08:50A M FARHAN IGLESIAS MD Not available Not available Not available Lab None recorde d. Referral None recorde d. Procedures None recorde d. Surgeries None recorde d. Imaging MRI, brain + interna l scallop dredger y canal, w/wo contras t - MRI, BRAIN + INTERNA L BUS BOY Y CANAL, W/WO CONTRAS T 2024 025 [facility] ([facility] [address], [place], [address], 11/22/2024 13:28:55 MRI, brain + interna l scallop dredger y canal, w/wo contras t - MRI, BRAIN + INTERNA L BUS BOY Y CANAL, W/WO CONTRAS T 2023 024 MADELYN [facility] ([facility]), [address], [place], [address], 11/03/2024 13:52:46 Medication Orders None recorde d. Patient TargetsNo targets recorded. Patient InstructionsNo instructions recorded. Reason for Referral None Reported. Results Created Date Observation Date Name Description Value Unit Range Abnormal Flag Note LastModifiedBy Organization Detail LastModifiedTime 10/25/20 24 04/12/2024 audio gram No observ ation record ed. [email or web address] Not Available 10/07 10:20:42 10/25/20 audio gram No observ ation record ed. BARCODE Not Available 2023 12:35:04 11/03/20 24 10/31/2024 MRI, brain + brain stem, w/wo contr ast [facility] Access ion Number : [id number] Patien t Name: Lindsey Solis Lonisandro rich Record Number : [id number] Date of : 1974 Date of Exam: 2023 Referr ing Physic skyler: Luis Manuel bstein , [facility] [address] [place] [address] Exam: MR Brain (C-/C+ ) CPT 59557 Room Descri ption: [facility] Verio 3.0T MRI of the brain withou t and with contra st with focus to IACs Clinic al indica tions: Headac hes. Vertig o. Left hearin g loss Compar yoli: None. FINDIN GS: The left CP angle is patent . There is an approx imatel y 7.5 x 5 x 3 mm diffus dante enhanc ing mass within the left IAC extend ing to the base of the cochle a. This sugges t a vestib ular schwan noma. The vestib ule, cochle a and semici rcular canals are within normal limits . No abnorm al enhanc ement. No right CP angle tumor is seen. The right 7th and 8th nerve comple xes are normal in calibe r and signal intens ities. No abnorm al enhanc ement is noted. The visual ized brain parenc hyma shows no acute pathol ogy. No hydroc ephalu s or midlin e shift. There is no defini te abnorm al enhanc ement. A partia l empty sella is noted which is a normal varian t. There are normal flow-v oids within major intrac ranial vessel s. The visual ized parana luis sinuse s are clear. IMPRES KASSI: There is an approx imatel y 7.5 x 5 x 3 mm diffus dante enhanc ing sugges ting a vestib ular schwan noma. Electr onical ly Signed By: Lucien Vega MD [facility] ([facility]) [address] [facility], [place], [address], 11/05/2024 09:27:45 12/27/19 25 12/18/2024 audio gram No observ ation record ed. [email or web address] Not Available 12/08 14:15:24 01/02/20 25 medic al clear ance* No observ ation record ed. [email or web address] Not Available 01/2025 14:32:02 Result Notes None recorded. Problems Name Problem SNOMED Code Status Onset Date Resolution Date Notes Provider Name and Address Organization Details Recorded Time Vertigo [id number] Active 2023 MUNIR ROYAL [place], [facility] [address] [address], [place], [address], [facility] - [facility] 4 09:44:36 Sensorineur al hearing loss in left ear 7138322516916 9 Active 2023 MUNIR ROYAL [place], [facility] [address] [address], [place], [address], [facility] - [facility] 4 09:44:58 Tinnitus of left ear 9268726927119 Active 2023 WILLIAM MONTESINOS MD [address] [address], [place], [address], [facility] - [facility] 4 10:10:47 Acoustic neuroma of left vestibular nerve 1623611352577 9101 Active 2024 FARHAN IGLESIAS MD [address] [facility] [address], [place], [address], [place] - [facility] 11:42:23 Problem Notes None recorded. Procedures Surgical History Date Name Laterality Status Provider Name and Address Organization Details Recorded Time Telehealth completed FARHAN IGLESIAS MD [address], [address], [place] - [facility] 11/22/2024 11:38:42 Comp Audio with Tymps (50091 & 81392) completed MUNIR ROYAL [place], [facility] [address] [place] [address], [place], [address], [place] - [facility] 10/25/2024 09:44:06 repair of shoulder completed Ulisses Quinteros [place] - [facility] 10/25/2024 10:01:40 Imaging Results Imaging Date Name Status LastModified by Organiz ation Details LastModified Time 04/12/2024 audiogram completed [email or web address] Information n ot available 10/25/2024 10:20:42 10/25/2024 audiogram completed BARCODE Information no t available 10/25/2024 12:35:04 10/31/2024 MRI, brain + brain stem, w/wo contrast completed [facility] ([facility]) [address] [place], [address], 11/05/2024 09:27:45 12/18/2024 audiogram completed [email or web address] Information n ot available 12/27/2024 14:15:24 01/02/2025 medical clearance* completed [email or web address] Information not available 01/06/2025 14:32:02 Procedure Notes None recorded. Medical Equipment None Reported. Allergies Allergen ID Allergen Name Allergen Category Reaction Reaction Severity Criticality Documentation Date Start Date Code Code System Note Provider Name and Address Organization Details Recorded Time 520557 Substance with sulfonami de structure and antibacte rial mechanism of action (substanc e) medicatio n Not available Not available Not available 10/25/2024 68340 8003 SNOMED Ulisses Quinteros null, [place] - [facility] 4 10:00:20 577501 Bactrim medicatio n Not available Not available Not available 10/25/2024 89116 9 RxNorm Ulisses yip [place] - [facility] 4 10:00:27 085178 amoxicill in medicatio n Not available Not available Not available 10/25/2024 723 RxNorm Ulisses yip [place] - [facility] 4 10:00:35 Medications Name Sig Start Date Stop Date Status Note LastModified by Organization Details LastModified Time celecoxib 200 mg capsule TAKE 1 CAPSULE BY MOUTH EVERY DAY IN THE MORNING 11/05 completed Not Available Not Available Not Available cyclobenzapr ine 10 mg tablet TAKE 1 TABLET BY MOUTH AT BEDTIME NEEDED SPASMS FOR 14 DAYS 10/25 completed Not Available Not Available Not Available cetirizine 10 mg tablet TAKE 1 TABLET BY MOUTH EVERY DAY active Not Available Not Available No t Available aspirin 325 mg tablet TAKE 1 TABLET BY MOUTH EVERY DAY FOR 14 DAYS 10/25 completed Not Available Not Available Not Available acyclovir 400 mg tablet TAKE 1 TABLET BY MOUTH TWICE A DAY active Not Available Not Available No t Available acetaminophe n 500 mg tablet TAKE 2 TABLETS BY MOUTH 3 TIMES A DAY active Not Available Not Available No t Available meloxicam 7.5 mg tablet 7.5 mg every day by oral route. 2024 active Not Available Not Available Not Avai lable hydromorphon e 2 mg tablet TAKE 1 TABLET BY MOUTH EVERY 4 HOURS NEEDED FOR 7 DAYS 10/25 completed Not Available Not Available Not Available aspirin 325 mg tablet,delay ed release TAKE 1 TABLET BY MOUTH EVERY DAY START DAY AFTER SURGERY 10/25 completed Not Available Not Available Not Available amlodipine 10 mg tablet TAKE 1 TABLET BY MOUTH EVERY DAY active Not Available Not Available No t Available docusate sodium 100 mg capsule TAKE 1 CAPSULE BY MOUTH EVERY DAY NEEDED active Not Available Not Available No t Available sertraline 25 mg tablet active Not Available Not Available Not Available buspirone 7.5 mg tablet TAKE 1 TABLET BY MOUTH TWICE A DAY 10/25 completed Not Available Not Available Not Available hydromorphon e 4 mg tablet TAKE A 1/2 TABLET BY MOUTH EVERY 4-6 HOURS FOR PAIN, DO NOT DRIVE WHILE TAKING 10/25 completed Not Available Not Available Not Available losartan 100 mg tablet TAKE 1 TABLET BY MOUTH EVERY DAY active Not Available Not Available No t Available fluticasone propionate 50 mcg/actuatio n nasal spray,suspen kassi SPRAY 1 SPRAY INTO BOTH NARES TWO TIMES A DAY FOR 90 DAYS. active Not Available Not Available No t Available escitalopram 20 mg tablet TAKE 1 AND 1/2 TABLETS DAILY BY MOUTH 10/12 completed Not Available Not Available Not Available atomoxetine 25 mg capsule TAKE 1 CAPSULE BY MOUTH EVERY MORNING 10/25 completed Not Available Not Available Not Available atomoxetine 40 mg capsule TAKE 1 CAPSULE BY MOUTH EVERY DAY IN THE MORNING active Not Available Not Available No t Available aripiprazole 5 mg tablet active Not Available Not Available Not Available bupropion HCl XL 300 mg 24 hr tablet, extended release TAKE 1 TABLET BY MOUTH DAILY,IN STR:TAKE WITH 150MG TO MAKE 450MG TOTAL active Not Available Not Available No t Available bupropion HCl XL 150 mg 24 hr tablet, extended release TAKE 1 TABLET BY MOUTH EVERY 24 HOURS,IN STR:TAKE WITH 300MG TO MAKE 450MG TOTAL active Not Available Not Available No t Available Abilify 2 mg tablet 2.5 mg every day by oral route. 2024 active Not Available Not Available Not Cornelius raile M- Plus 27 mg iron-1 mg tablet TAKE 1 TABLET BY MOUTH EVERY DAY active Not Available Not Available No t Available Vitals None Recorded Social History None recorded. Functional Status None recorded. Mental Status None recorded. Family History Nothing Reported. Medical History Condition Response Allergies/Hayfever Y Heart Problems N Anxiety Y Tonsil Infections Y Emphysema N Migraines N Thyroid Problems N Glaucoma N Depression Y COPD N Developmental Delay N Nasal or Sinus Problems Y Anemia Y Immune System Disorder N Anesthesia Complications N Heart Attack (NM) N Other Skin Condition N Diabetes N Rhinitis N Bleeding Disorder N Food Allergy N Arthritis N Hearing Loss Y Hyperlipidemia N Cancer N Stroke N Dementia N Nasal polyps N Asthma N Sleep Disorder N GERD/Reflux N High Cholesterol N Liver Disease N Headaches Y Fibromyalgia N Hypertension Y Speech Delay N Kidney Disease N Gynecological HistoryNo gynecological history recorded. Obstetrics History GPAL:G 0 P 0 0 0 0 Past Encounters Encounter ID Performer Location Encounter Start Date Encounter Closed Date Diagnosis/Indication Diagnosis SNOMED-CT Code Diagnosis ICD10 Code Diagnosis Note [id number] WILLIAM BELTRAN MD [facility] [address] [address] 10/25/2024 08:39:20 10/25/2024 10:19:53 Sensorineural hearing loss in left ear [id number] 9109 H90.42 Audiologic al evaluation results: Right ear: {{Normal* Normal through 2 kHz Mild M oderate Mo derately-s evere Josselin re Profoun d}} {{hearing* hearing. sloping to a mild slopi ng to a moderate s loping to moderately severe slo ping to severe slo ping to profound f lat high frequency low frequency mid frequency cookie bite spencer curve}} {{with* se nsorineura l hearing loss with condu ctive hearing loss with mixed hearing loss with}} {{excellen t* good fa ir poor no measurable }} word recognitio n. Left ear: {{Normal N ormal through 2 kHz Mild M oderate Mo derately-s evere Josselin re Profoun d Profound rising to severe#}} {{hearing hearing. s loping to a mild slopi ng to a moderate s loping to moderately severe slo ping to severe slo ping to profound f lat high frequency low frequency mid frequency cookie bite spencer curve SNHL #}} {{with* se nsorineura l hearing loss with condu ctive hearing loss with mixed hearing loss with}} {{excellen t good john r poor no measurable no#}} word recognitio n. Tympanomet ry: Right Ear:{{Type A* Type As Type Ad Type C Type C, shallow & rounded Ty pe B Type B with large volume Cou ld not maintain a hermetic seal}} Left Ear:{{Type A* Type As Type Ad Type C Type C, shallow & rounded Ty pe B Type B with large volume Cou ld not maintain a hermetic seal}} Vertigo [id number] R42 Tinnitus of left ear 644 8251408 106 H93.12 [id number] FARHAN IGLESIAS MD [facility] [address] [place] [address] 11/22/2024 10:15:04 11/22/2024 13:28:55 Sensorineural hearing loss in left ear [id number] 9109 H90.42 Acoustic n euroma of left vestibular nerve 7138843330 3608784 D33.3 Patient has a newly diagnosed {{right le ft*}}-side d intracanal icular acoustic neuroma measuring {{ 7 x 5 x 3#}}mm. Patient has a correspond ing {{mild mod erate josselin re profoun d*}} degree of sensorineu ral hearing loss with {{normal n ear normal mil dly reduced mo derately reduced se verely reduced*}} speech discrimina tion. There is no other sign of cranial neuropathy . Today I spoke with the patient about the pathophysi ology of acoustic neuroma (vestibula r schwannoma ) and about the fact that this is typically a benign, very slow-growi ng tumor. We discussed the fact that frequently these tumors grow to a certain size then stop growing. At this point, because we only have one scan, it is difficult to know whether this is a growing tumor or not. We discussed the options of observatio n versus more active interventi on such as stereotact ic radiosurge ry or surgical removal. In this situation, I typically recommend at least a 6 month period of observatio n with a follow up MRI scan in order to determine whether this is a growing tumor or not prior to proceeding with more active interventi on. We did discuss the fact that patient may experience hearing changes during observatio n that may or may not be reversible , but even with more active treatment there is still a significan t risk of progressiv e or complete hearing loss. Patient is agreeable with this plan of observatio n, so we will arrange for a followup MRI scan of the brain and internal auditory canals with gadolinium in {{1 2 3 4 5 6*}} {{years mo nths*}} at {{[facility] Patient will followup at that time. Patient will contact me with any sudden changes in hearing, changes in facial function, or acute balance disturbanc e. Health Concerns Section Related Observation LastModified by Organization Detai ls LastModified Time None Recorded Concern Status LastModified by Organization Details LastModified Time None Recorded Advance Directives Directive None Recorded Payers Encounter Date Sequence Insurance Name Policy Number Policy Luevano Covered Member ID Luevano Member ID Guarantor Name 10/25/2024 1 [facility] [id number] Flaquita Solis [id number] Flaquita Solis 11/22/2024 1 [facility] [id number] Flaquita Solis [id number] Flaquita Solis Notes Date Note Type Note Provider Name and Address Organization Details Recorded Time 10/25/2024 text/html 49-year-old katy villafuerte seen for an opinion regarding progressive hearing loss left ear for the last 2 years. She notes longstanding history of left-sided tinnitus and balance difficulties with intermittent vertigo. Denies any headaches. Uses glasses. No fam hx of HL WILLIAM NOEL MD [address] [facility],[address], [address], [facility] - [facility] 10/25/2024 10:16:44 11/22/2024 text/html Patient referred for evaluation of a newly diagnosed {{right left*}}-sided acoustic neuroma. MRI scan of the brain on {{DATE 10/31/2024}} showed {{right left*}}-sided intracanalicular acoustic neuroma measuring {{ 7 x 5 x 3#}}mm. Patient has noted hearing loss in the {{right left*}} ear that has been progressive over the past couple of years. She had audiometric testing at [facility] audiology of the summer showing a moderate to severe sensorineural hearing loss. She had audiometric testing at our office during her visit with Dr. Noel which showed progression to profound hearing loss in the left ear. Patient has noticed no facial weakness or twitching, though she did have a period of time of left-sided facial twitching when she was started on a medication for ADHD, which subsided after discontinuing the medication. Patient has had no significant or persistent balance disturbance. FARHAN IGLESIAS MD [address] [place] [address],[address], [address], [facility] 11/22/2024 11:49:06 OBGyn Episode No OBEpisode recorded.
== END 2025-02-25 11:18 | disposition home or self-care (01) ==
LOC: HO.HAP 11:17
PROVIDERS: Visit Provider Nurse Practitioner Family
DX: Z13.89 Encounter for screening for other disorder (principal)

== ENCOUNTER 2025-06-24 15:45 | Outpatient (REF) | payer OTHER, SELFPAY ==
--- OUTSIDE RECORDS SUMMARY | 2025-06-24 17:07 | XMS_ITS | Encounter Summary ---
Author Organization [facility] Address [address] [place] [address] Care Team Providers Care Check Cashier Name Role Phone Unavailable Primary Care Provider Unavailabl e Encounter Details Date Type Department Care Team (Late st Contact Info) Description 04/01/2022 Dental Interim Note [facility] [address] [place] [id number] HernandezWhitney jo Y [address] [place], [place] [phone] Social History Tobacco Use Types Packs/Day Years [...]
--- OUTSIDE RECORDS SUMMARY | 2025-06-24 17:07 | XMS_ITS | Clinical Summary ---
Author Organization [facility] Address [address] [place] [id number] Phone Care Team Providers Care Carpet Installer Name Role Phone Anna Browning NP Primary Care Provider [phone] Allergies Active Allergy Reactions Criticality Noted Date Comments Amoxicillin 06/04/2020 Sulfa (Sulfonamide Antibiotics) 05/08 Medications amLODIPine (NORVASC) 5 MG tablet Take 5 mg by mouth daily. Active losartan (COZAAR) 100 MG tablet Take 100 mg by mouth daily. Active buPROPion (WELLBUTRIN XL) 300 MG ER 24 hr tablet Take 300 mg by mouth every morning. Active citalopram (CELEXA) 10 MG tablet Take 10 mg by mouth daily. Active Social History Tobacco Use Types Packs/Day Years Used Date Smoking Tobacco: Never Assessed Education Answer Date Recorded Are you interested in more education? Not on raj e 03/03/2023 Are you concerned about learning? Not on file 03/03/2023 No 03/03/2023 No 03/03/2023 Digital Access Answer Date Recorded No 04/04/2023 No 04/04/2023 Reliable internet access at home? Not on file 04/04/2023 Device with a working camera? Not on file Comments Unknown Sex and Gender Information Value Date Recorded Sex Assigned at Female 06/04/2020 12:13 PM EDT Legal Sex Female 12:07 PM EDT Gender Identity Female 06/04/2020 12:13 PM EDT Sexual Orientation Not on file Last Filed Vital Signs Vital Sign Reading Time Taken Comments Blood Pressure 134/84 06/04/2020 2:00 PM EDT Pulse 89 06/04/2020 2:00 PM EDT Temperature 36.9 C (98.4 F) 06/04/2020 12:10 PM EDT Respiratory Rate 16 06/04/2020 2:00 PM EDT Oxygen Saturation 97% 06/04/2020 2:00 PM EDT Inhaled Oxygen Concentration - - Weight 108 kg (238 lb) 06/04/2020 12:10 PM EDT Height 160 cm (5' 3 ) 06/04/2020 12:10 PM EDT Body Mass Index 42.16 06/04/2020 12:10 PM EDT Plan of Treatment Not on file Medical Devices Not on file Insurance PPO PPO PPO PPO PPO PPO PPO PPO Care Teams Carpet Installer Relationship Specialty Start Date End Date Anna Browning NP [address] [place] [address] PCP - General Family Medicine 06/04/20 Additional Source Comments The information contained in this document represents components of the legal health record. It is not the complete legal health record.[facility]
--- OUTSIDE RECORDS SUMMARY | 2025-06-24 17:07 | XMS_ITS | Patient Health Record ---
[facility] Address [address] [place] [address] Care Team Providers Care Lead Ios Developer Name Role Phone Nallely, Anna Primary Care Provider Quinn Estrada Unavailable [phone] Allergies Allergen (clinical drug ingredient) Drug/Non Drug Allergy documented on EMR Reaction Allergy Type Onset Date Status amoxicillin Amoxicillin vomiting Drug Allergy Act prince sulfamethoxazole / trimethoprim Bactrim rash Drug Allergy Active Reason For Referral No Information Medications Medication SIG (Take, Route, Frequency, Duration) Notes Start Date End Date Status Feldene 20 MG 1 capsule with food Orally Once a day; Duration: 30 day(s) 06/27/2018 Active Custom Orthotics as directed 06/27/2018 Active Night Splint AFO - L1930 as directed 06/27/2018 Active Physical Therapy . . . 2-3x/week; Durat ion: 3-4 weeks 06/27/2018 Active Wellbutrin XL 150 MG [...] Insured Coverage Start Date Coverage End Date [facility] [id number] [place] [phone] [id number] Flaquita Solis Self - patient is the insured Medical (General) History Medical History History ICD Code Anxiety Back,Hip,and Knee pain Depression Headaches/Migraines High blood pressure chronic sinusitis Chicken pox Transfusions Surgical History Surgery Date(Month/Year) tubal ligation 12/1998 gastric bypass 02/2008 hysterectomy 06/2009 ligament repair 11/2007
== END 2025-06-24 15:46 | disposition home or self-care (01) ==
LOC: HO.HAP 15:45
PROVIDERS: Visit Provider Nurse Practitioner Family
DX: Z13.89 Encounter for screening for other disorder (principal)